=== PATIENT | female | born 1985 | race Caucasian/White ===

== ENCOUNTER 2018-07-05 15:22 | Outpatient (CLI) | payer BC, OTHER ==
--- NOTE | 2018-07-05 16:06 | RAD ---
EXAM: XR Lumbar Spine Min 4 View PROVIDED CLINICAL HISTORY: Low back pain. Lumbar radiculopathy. Bilateral leg pain and numbness. COMPARISON: None FINDINGS: A transitional vertebra is present at the lumbosacral junction. Vertebral body heights are within nor mal limits, and there is no evidence of a fracture. There are degenerative changes seen in the lower lumbar spine with facet degenerative changes and narrowing of the intervertebral disc space wit h mild osteophytes present. No fracture or subluxation is identified. No abnormal translational motion is present between flexion and extension views. IMPRESSION: 1. Transitional vertebra at the lumbosacral junction with degenerative changes lower lumbar spine, bu t no fracture or subluxation is seen. If there is a neurological deficit, MRI lumbar spine May be helpful for further evaluation.
--- NOTE | 2018-07-05 16:38 | MRI ---
MRI Lumbar Spine Noncontrast: HISTORY: Low back pain. Lumbar radiculopathy. Patient states bilateral leg pain and numbness for 14 years. COMPARISON: None FINDINGS: A tiny less than 5 mm increased T2-weighted signal intensity focus is seen in the midportion right ki dney which is too small to characterize. However, this statistically likely represents a tiny cyst. The remainder of the visualized retroperitoneal structures demonstrate a grossly normal MRI appearanc e. Conus medullaris is normal in morphology and terminates at the L2 level. Normal signal intensity is demonstrated in the bone marrow. The paravertebral soft tissues have a nor mal MRI appearance. L1-2: There is no disc bulge or disc herniation. Central spinal canal and neural foramina are patent. L2-3: There is no disc bulge or disc herniation. Central spinal canal and neural foramina are patent. L3-4: There is no disc bulge or disc herniation. Central spinal canal and neural foramina are patent. L4-5: There is no disc bulge or disc herniation. Central spinal canal and neural foramina are patent. Mild facet degenerative changes are seen. L5-S1: There is loss of intervertebral disc height. There is a broad-based disc osteophyte complex wi th small central disc protrusion. This does result in mild flattening of the anterior aspect of the thecal sac at this level with encroachment on the exiting bilateral S1 nerve roots from the thecal sa c. Facet hypertrophic changes and ligamentous thickening are present at this level. Moderate to severe right-sided neural foraminal narrowing is present. The left neural foramen is patent. Subcenti meter increased T2-weighted signal intensity focus is seen posterior to the left facet joint likely due to small synovial cyst. 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 There is right-sided neural foraminal narrowing, and the central disc protrusion/disc osteophyte complex does encroach on the bilateral S1 nerve roots as the nerve roots exit the thecal sac.
== END 2018-07-05 15:23 | disposition home or self-care (01) ==
LOC: TBSIIMAG 15:22
PROVIDERS: ATTEND Physician Assistant Surgical
DX: M47.26 Other spondylosis with radiculopathy, lumbar region (principal); M51.37 Other intervertebral disc degeneration, lumbosacral region; M25.78 Osteophyte, vertebrae; M51.27 Other intervertebral disc displacement, lumbosacral region; M48.07 Spinal stenosis, lumbosacral region
CPT/HCPCS: 72110; 72148